=== PATIENT | female | born 1985 | race African-American/Black ===

== ENCOUNTER 2022-01-13 16:06 | Emergency (ER) | payer MEDICAID, OTHER ==
[~2022-01-13] VITALS: Ht 172.7 cm; Wt 65.8 kg
[2022-01-13] MEDS ORDERED: BACL5TAB2 PO ×2 (19:19→20:49)
[2022-01-13] MEDS ORDERED: KETOROLAC TROMETH 30 MG/ML 1ML VIAL IM ONE (19:45)
[2022-01-13 20:45] VITALS: BP 133/94
== END 2022-01-13 20:46 | disposition home or self-care (01) ==
LOC: EDBD 16:06 → ER 16:06
DX: S16.1XXA Strain of muscle, fascia and tendon at neck level, initial encounter (principal); V43.52XA Car driver injured in collision with other type car in traffic accident, initial encounter; Y93.89 Activity, other specified; Y92.488 Other paved roadways as the place of occurrence of the external cause; Y99.8 Other external cause status
CPT/HCPCS: 71045; 72125; 73030; 96372; 99284; J1885